=== PATIENT | female | born 1980 | race Asian ===

== ENCOUNTER 2022-01-24 03:55 | Emergency (ER) | payer OTHER ==
[~2022-01-24] VITALS: Ht 160 cm; Wt 72.6 kg
[2022-01-24 04:53] LABS: PLATELET COUNT 335 K/uL (152-353)
[2022-01-24 05:08] LABS: POTASSIUM 3.7 mmol/L (3.6-5.2)
[2022-01-24 10:20] VITALS: BP 118/66; TEMP 98
== END 2022-01-24 21:45 | disposition still patient (30) ==
LOC: ED 03:55
PROVIDERS: Hospitalist
DX: F20.89 Other schizophrenia (principal); R44.2 Other hallucinations; Z59.02 Unsheltered homelessness; Z11.52 Encounter for screening for COVID-19
CPT/HCPCS: 36415; 80053; 80143; 80179; 80307; 80320; 81000; 81025; 85027; 87635; 93005; 96372; 99285; J1630; U0003

== ENCOUNTER 2022-04-03 18:11 | Emergency (ER) | payer OTHER ==
[~2022-04-03] VITALS: Ht 160 cm; Wt 72.6 kg
[2022-04-03 19:01] LABS: PLATELET COUNT 328 K/uL (152-353)
[2022-04-03 19:07] LABS: POTASSIUM 3.8 mmol/L (3.6-5.2)
[2022-04-03 20:40] VITALS: BP 118/79; TEMP 98.1
== END 2022-04-03 20:45 | disposition home or self-care (01) ==
LOC: ED 18:11
PROVIDERS: Emergency Medicine Emergency Medical Services
DX: R31.9 Hematuria, unspecified (principal)
CPT/HCPCS: 36415; 80048; 81002; 81015; 85027; 96360; 96374; 99284; J1885; Q9963

== ENCOUNTER 2022-04-29 11:05 | Emergency (ER) | payer OTHER ==
[~2022-04-29] VITALS: Ht 162.6 cm; Wt 72.6 kg
[2022-04-29 11:44] LABS: POTASSIUM 3.9 mmol/L (3.6-5.2)
[2022-04-29 11:47] LABS: PLATELET COUNT 316 K/uL (152-353)
[2022-04-29] MEDS ORDERED: CEFDINIR300 MG PO (12:47)
[2022-04-29] MEDS ORDERED: KETO10TA34 PO (12:55)
[2022-04-29 13:40] VITALS: BP 128/80; TEMP 98.7
== END 2022-04-29 13:49 | disposition home or self-care (01) ==
LOC: ED 11:05
PROVIDERS: Emergency Medicine Emergency Medical Services
DX: N94.6 Dysmenorrhea, unspecified (principal); J20.9 Acute bronchitis, unspecified; U07.1 COVID-19; R10.84 Generalized abdominal pain; F17.210 Nicotine dependence, cigarettes, uncomplicated
CPT/HCPCS: 36415; 80048; 81000; 81025; 85027; 87502; 87635; 96360; 96361; 96374; 96375; 99284; J1885; J2405; Q9963; U0003

== ENCOUNTER 2022-05-28 12:08 | Emergency (ER) | payer OTHER ==
[~2022-05-28] VITALS: Ht 162.6 cm; Wt 72.6 kg
[~2022-05-28 12:08] MED LIST: CEFDINIR300 MG PO; KETO10TA34 PO
[2022-05-28 12:24] VITALS: BP 146/84; TEMP 97.1
== END 2022-05-28 14:31 | disposition home or self-care (01) ==
LOC: ED 12:08
DX: N94.6 Dysmenorrhea, unspecified (principal)
CPT/HCPCS: 81000; 81025; 96372; 99283; J1885

== ENCOUNTER 2022-06-26 12:27 | Emergency (ER) | payer OTHER ==
[~2022-06-26] VITALS: Ht 170.2 cm; Wt 72.6 kg
[2022-06-26 12:44] VITALS: BP 119/79; TEMP 96.9
[2022-06-26 13:58] LABS: PLATELET COUNT 359 K/uL (152-353)
[2022-06-26 14:15] LABS: POTASSIUM 3.8 mmol/L (3.6-5.2)
== END 2022-06-26 16:01 | disposition home or self-care (01) ==
LOC: ED 12:27
PROVIDERS: Emergency Medicine
DX: R10.84 Generalized abdominal pain (principal)
CPT/HCPCS: 80053; 83690; 85027; 99283

== ENCOUNTER 2022-11-13 13:12 | Emergency (ER) | payer OTHER ==
[~2022-11-13] VITALS: Ht 170.2 cm; Wt 72.6 kg
[2022-11-13 13:21] VITALS: BP 108/60; TEMP 97.4
[2022-11-13 14:14] LABS: PLATELET COUNT 303 K/uL (152-353)
[2022-11-13 14:18] LABS: POTASSIUM 4.5 mmol/L (3.6-5.2)
== END 2022-11-13 15:22 | disposition left against medical advice (07) ==
LOC: ED 13:12
PROVIDERS: Emergency Medicine Emergency Medical Services
DX: R11.2 Nausea with vomiting, unspecified (principal); R19.7 Diarrhea, unspecified; Z53.29 Procedure and treatment not carried out because of patient's decision for other reasons; Z79.899 Other long term (current) drug therapy
CPT/HCPCS: 36415; 80053; 80307; 81002; 81025; 82150; 83690; 85027; 96361; 96374; 96375; 99284; J2405; J3490

== ENCOUNTER → 2022-12-03 | Emergency (ER) | payer OTHER ==
[~2022-12-03] VITALS: Ht 170.2 cm; Wt 68.0 kg
[2022-12-03 19:30] VITALS: BP 115/65; TEMP 98.3
== END ==
LOC: ED 19:23
DX: F33.8 Other recurrent depressive disorders (principal); F41.8 Other specified anxiety disorders; Z79.899 Other long term (current) drug therapy; Z20.822 Contact with and (suspected) exposure to COVID-19
CPT/HCPCS: 80307; 81002; 81025; 87635; 93005; 99283; U0003

== ENCOUNTER 2023-02-07 20:12 | Emergency (ER) | payer OTHER ==
[~2023-02-07] VITALS: Ht 170.2 cm; Wt 68.0 kg
[2023-02-07 20:12] VITALS: BP 133/91; TEMP 97.9
[2023-02-07 21:32] LABS: PLATELET COUNT 324 K/uL (152-353)
[2023-02-07 21:40] LABS: POTASSIUM 3.8 mmol/L (3.6-5.2)
== END 2023-02-07 22:08 | disposition home or self-care (01) ==
LOC: ED 20:12
PROVIDERS: Family Medicine
DX: M79.674 Pain in right toe(s) (principal); F17.210 Nicotine dependence, cigarettes, uncomplicated
CPT/HCPCS: 36415; 80053; 81025; 85027; 99283

== ENCOUNTER 2023-02-10 21:28 | Emergency (ER) | payer OTHER ==
[~2023-02-10] VITALS: Ht 170.2 cm; Wt 68.0 kg
[2023-02-10 21:48] VITALS: BP 108/68; TEMP 98.7
== END 2023-02-10 23:45 | disposition home or self-care (01) ==
LOC: ED 21:28
DX: R10.9 Unspecified abdominal pain (principal); F17.210 Nicotine dependence, cigarettes, uncomplicated
CPT/HCPCS: 81002; 99283

== ENCOUNTER 2023-02-15 08:01 | Emergency (ER) | payer OTHER ==
[~2023-02-15] VITALS: Ht 170.2 cm; Wt 58.5 kg
[2023-02-15 08:41] LABS: PLATELET COUNT 371 K/uL (152-353)
[2023-02-15 08:48] LABS: POTASSIUM 3.6 mmol/L (3.6-5.2); SODIUM 138 mmol/L (136-145)
[2023-02-15 14:47] VITALS: BP 134/78; TEMP 98.3
== END 2023-02-15 14:47 | disposition other institution (70) ==
LOC: ED 08:01
PROVIDERS: Family Medicine
DX: F32.A Depression, unspecified (principal); F29 Unspecified psychosis not due to a substance or known physiological condition
CPT/HCPCS: 36415; 80053; 80143; 80179; 80307; 80320; 81000; 81025; 85027; 87086; 87088; 93005; 96372; 99285; J3486

== ENCOUNTER 2023-03-31 19:35 | Emergency (ER) | payer OTHER ==
[~2023-03-31] VITALS: Ht 170.2 cm; Wt 68.0 kg
[2023-03-31 19:47] VITALS: BP 111/64; TEMP 98.6
== END 2023-03-31 20:53 | disposition home or self-care (01) ==
LOC: ED 19:35
DX: N39.0 Urinary tract infection, site not specified (principal); Z20.2 Contact with and (suspected) exposure to infections with a predominantly sexual mode of transmission
CPT/HCPCS: 81000; 87490; 87590; 96372; 99283; J0696

== ENCOUNTER 2023-04-05 16:43 | Emergency (ER) | payer OTHER ==
[~2023-04-05] VITALS: Ht 170.2 cm; Wt 63.5 kg
[2023-04-05 17:41] LABS: PLATELET COUNT 262 K/uL (152-353)
[2023-04-05 17:47] LABS: POTASSIUM 3.5 mmol/L (3.6-5.2); SODIUM 127 mmol/L (136-145)
[2023-04-05 23:10] VITALS: BP 115/66; TEMP 97.6
[2023-04-06] MEDS ORDERED: BUSPIRONE10 MG PO (10:32)
[2023-04-06] MEDS ORDERED: RISPERDAL3 MG PO (10:32)
[2023-04-06] MEDS ORDERED: QUET100T2 PO (10:33)
[2023-04-06] MEDS ORDERED: DIVALPROEX500 M1 PO (10:34)
== END 2023-04-05 23:10 | disposition still patient (30) ==
LOC: ED 16:43
PROVIDERS: Family Medicine
DX: R10.9 Unspecified abdominal pain (principal); F20.9 Schizophrenia, unspecified; F17.210 Nicotine dependence, cigarettes, uncomplicated; K52.9 Noninfective gastroenteritis and colitis, unspecified
CPT/HCPCS: 80053; 80143; 80179; 80307; 80320; 81002; 81025; 85027; 96374; 99284; J3490

== ENCOUNTER 2023-04-05 22:48 | Inpatient (IN) | payer OTHER ==
[~2023-04-05] VITALS: Ht 170.2 cm; Wt 63.1 kg
[2023-04-05 23:39] VITALS: BP 114/74; TEMP 97.6; Ht 170.2 cm; Wt 63.1 kg
[2023-04-06 03:42] VITALS: BP 118/56; TEMP 98.5
[2023-04-06 07:15] LABS: PLATELET COUNT 243 K/uL (152-353)
[2023-04-06 07:31] LABS: POTASSIUM 3.6 mmol/L (3.6-5.2)
[2023-04-06 08:00] VITALS: BP 126/65; TEMP 98.4
[2023-04-06] MEDS ORDERED: BUSPIRONE10 MG PO (10:32)
[2023-04-06] MEDS ORDERED: RISPERDAL3 MG PO (10:32)
[2023-04-06] MEDS ORDERED: QUET100T2 PO (10:33)
[2023-04-06] MEDS ORDERED: DIVALPROEX500 M1 PO (10:34)
[2023-04-06 12:00] VITALS: BP 134/86; TEMP 98.2
== END 2023-04-06 14:15 | disposition left against medical advice (07) | DRG 392 ==
LOC: MED/SURG 22:48
PROVIDERS: ADMIT Internal Medicine Endocrinology, Diabetes & Metabolism; ATTEND Internal Medicine Endocrinology, Diabetes & Metabolism
DX: K52.89 Other specified noninfective gastroenteritis and colitis (principal); F20.89 Other schizophrenia; R10.9 Unspecified abdominal pain; R11.2 Nausea with vomiting, unspecified; Z53.29 Procedure and treatment not carried out because of patient's decision for other reasons
CPT/HCPCS: 80048; 85027; J2405; J3490

== ENCOUNTER 2023-10-15 20:13 | Emergency (ER) | payer OTHER ==
[~2023-10-15] VITALS: Ht 170.2 cm; Wt 68.0 kg
[~2023-10-15 20:13] MED LIST changes: +BUSPIRONE10 MG PO; +DIVALPROEX500 M1 PO; +ONDA4TAB3 PO; +QUET100T2 PO; +RISPERDAL3 MG PO
[2023-10-15 20:25] VITALS: TEMP 97.8
[2023-10-15] MEDS ORDERED: TORADOL 30MG/ML INJ IM ONE (21:16)
[2023-10-15 21:20] VITALS: BP 115/56
[2023-10-15] MEDS ORDERED: TORADOL 30MG/ML INJ ONE (21:24)
== END 2023-10-15 21:49 | disposition home or self-care (01) ==
LOC: ED 20:13
DX: R10.9 Unspecified abdominal pain (principal); F29 Unspecified psychosis not due to a substance or known physiological condition; F20.9 Schizophrenia, unspecified
CPT/HCPCS: 96372; 99282; J1885

== ENCOUNTER 2023-10-16 02:27 | Emergency (ER) | payer OTHER ==
[~2023-10-16] VITALS: Ht 170.2 cm; Wt 65.8 kg
[2023-10-16 02:27] VITALS: TEMP 97.6
[2023-10-16] MEDS ORDERED: GI COCKTAIL-HYOSCYAMINE 30 ML ML PO ONE ×2 (04:00→04:02)
[2023-10-16 04:44] VITALS: BP 108/77
== END 2023-10-16 04:44 | disposition home or self-care (01) ==
LOC: ED 02:27
DX: Z76.89 Persons encountering health services in other specified circumstances (principal); Z59.00 Homelessness unspecified; F22 Delusional disorders
CPT/HCPCS: 99282

== ENCOUNTER 2023-10-16 12:23 | Emergency (ER) | payer OTHER ==
[~2023-10-16] VITALS: Ht 170.2 cm; Wt 68.0 kg
[2023-10-16 12:28] VITALS: BP 146/71; TEMP 98.5
== END 2023-10-16 13:00 | disposition home or self-care (01) ==
LOC: ED 12:23
DX: Z32.02 Encounter for pregnancy test, result negative (principal); Z71.1 Person with feared health complaint in whom no diagnosis is made
CPT/HCPCS: 81002; 81025; 99283

== ENCOUNTER 2023-10-19 06:45 | Emergency (ER) | payer OTHER ==
[~2023-10-19] VITALS: Ht 170.2 cm; Wt 68.0 kg
[2023-10-19 07:32] VITALS: BP 116/48; TEMP 97.36
== END 2023-10-19 07:40 | disposition home or self-care (01) ==
LOC: ED 06:45
DX: R05.9 Cough, unspecified (principal); J06.9 Acute upper respiratory infection, unspecified; B34.9 Viral infection, unspecified
CPT/HCPCS: 99281